=== PATIENT | male | born 1955 | race Caucasian/White ===

== ENCOUNTER → 2019-07-09 | Emergency (ER) | payer BC ==
[~2019-07-09] VITALS: Ht 170.2 cm; Wt 93.0 kg
[~2019-07-09] MED LIST: MORPHINE SULFATE INJ 2 MG/ML DISP.SYRIN IM ONE; MORPHINE SULFATE INJ 4 MG/ML DISP.SYRIN ONE
--- NOTE | 2019-07-09 22:30 | NUR ---
BIB [facility] COMPLAINING OF FACE/EYE PAIN S/P [employer]. PT APPEARS UNCOMFORTABLE. NOTED FACIAL REDNESS.
--- NOTE | 2019-07-09 22:34 | NUR ---
PER VERBAL MD ORDER, MORPHINE 4MG IM [id number].
--- NOTE | 2019-07-09 22:35 | NUR ---
PT AMBULATORY TO EYEWASH STATION. PT ABLE TO TOLERATE WELL. MD AT BEDSIDE.
--- NOTE | 2019-07-09 22:45 | NUR ---
[employer] AT BEDSIDE.
--- NOTE | 2019-07-10 00:03 | NUR ---
PT UNDER IRRIGATION ABOUT 1 HR, AMBULATORY TO BED. PT STILL UNCOMFORTABLE, MD AWARE
--- NOTE | 2019-07-10 01:04 | NUR ---
Patient discharged to home in stable condition. Written and verbal after care instructions given. Patient verbalizes understanding of instruction. Pt ambulatory with a steady gait
[2019-07-10 01:07] VITALS: BP 154/91
== END | disposition home or self-care (01) ==
LOC: ER 22:28
DX: T65.891A Toxic effect of other specified substances, accidental (unintentional), initial encounter (principal); Y92.89 Other specified places as the place of occurrence of the external cause
CPT/HCPCS: 96372; 99283; J2270